=== PATIENT | female | born 1980 | race African-American/Black ===

== ENCOUNTER 2022-01-23 16:44 | Emergency (ER) | payer OTHER ==
[~2022-01-23] VITALS: Ht 172.7 cm; Wt 80.0 kg
[2022-01-23 16:58] VITALS: BP 142/80
[2022-01-23] MEDS ORDERED: IBUP-2030 PO (17:06)
[2022-01-23 19:18] LABS: CLARITY URINE TURBID (CLEAR); COLOR URINE DARK YELLOW (YELLOW); KETONES URINE TRACE (NEGATIVE); LEUKOCYTE ESTERASE URINE 3+ (NEGATIVE); NITRITE URINE POSITIVE (NEGATIVE); OCCULT BLOOD URINE 2+ (NEGATIVE); PROTEIN URINE 3+ (NEGATIVE); SPECIFIC GRAVITY URINE 1.024 (1.005-1.030)
[2022-01-23] MEDS ORDERED: DEXT15SY3 PO (20:02)
[2022-01-23] MEDS ORDERED: DOXY100T2 MT (20:02)
== END 2022-01-23 20:10 | disposition home or self-care (01) ==
LOC: ER 16:44
DX: J18.9 Pneumonia, unspecified organism (principal); N39.0 Urinary tract infection, site not specified
CPT/HCPCS: 71045; 81003; 87077; 87186; 93005; 99285